=== PATIENT | male | born 1955 | race Caucasian/White ===

== ENCOUNTER 2024-12-09 19:22 | Observation (INO) | payer MEDICARE ==
[~2024-12-09] VITALS: Ht 182.9 cm; Wt 121.6 kg
[2024-12-09 19:56] LABS: BASOPHILS ABSOLUTE AUTO 0.02 K/mm3 (0.00-0.23); BASOPHILS PERCENT AUTO 0 % (0-2); EOSINOPHILS ABSOLUTE AUTO 0.02 K/mm3 (0.00-0.68); EOSINOPHILS PERCENT AUTO 0 % (0-6); Hematocrit 44.2 % (37.0-53.0); Hemoglobin 15.2 g/dL (13.5-17.5); IMMATURE GRAN ABSOLUTE AUTO 0.04 K/mm3 (0.00-0.10); IMMATURE GRAN PERCENT AUTO 0 % (0-1); LYMPHOCYTES ABSOLUTE AUTO 2.06 K/mm3 (0.84-5.20); LYMPHOCYTES PERCENT AUTO 14 % (21-46); MONOCYTES ABSOLUTE AUTO 1.66 K/mm3 (0.16-1.47); MONOCYTES PERCENT AUTO 11 % (4-13); Mean Corpuscular HGB Conc 34.4 g/dL (31.5-36.5); Mean Corpuscular Volume 85 fL (80-100); NEUTROPHILS ABSOLUTE AUTO 10.84 K/mm3 (1.96-9.15); NEUTROPHILS PERCENT AUTO 74 % (41-73); NRBC ABSOLUTE 0.00 K/mm3 (0.00-0.02); NRBC Auto 0.0 /100 WBC (0.0-0.2); Platelet Count 212 K/mm3 (150-400); RDW Coefficient Variation 12.9 % (11.7-14.2); RDW Standard Deviation 39.9 fL (35.1-46.3)
[2024-12-09 20:14] LABS: Alanine Aminotransfer (ALT/SGP 61.0 U/L (12-78); Albumin, Blood 3.9 g/dL (3.4-5.0); Albumin/Globulin Ratio 1.1 (0.8-1.8); Anion Gap 8.0 mmol/L (3-11); Aspartate Aminotrans (AST/SGOT 29.0 U/L (12-37); Bilirubin, Total 0.6 mg/dL (0.1-1.0); Blood Urea Nitrogen 13.0 mg/dL (8-24); CO2, Blood 27.0 mmol/L (21-32); Calcium, Blood 9.0 mg/dL (8.5-10.1); Chloride, Blood 101.0 mmol/L (98-108); Creatinine, Blood 0.71 mg/dL (0.60-1.20); Globulin, Blood 3.7 g/dL (2.2-4.0); Glucose, Blood 137.0 mg/dL (70-99); Potassium, Blood 3.3 mmol/L (3.5-5.5); Sodium, Blood 133.0 mmol/L (136-145); Total Protein, Blood 7.6 g/dL (6.4-8.2)
[2024-12-09] MEDS ORDERED: Ampicillin Sod/Sulbactam Sod 3 GM in NS 100 ML IV ONE (23:40)
[2024-12-09] MEDS ORDERED: FentaNYL Citrate 50 MCG/ML 2 ML Injection IV PRN (23:45)
[2024-12-09] MEDS ORDERED: NS 1,000 ML IV ONE (23:45)
[2024-12-09] MEDS ORDERED: Ondansetron HCl 2 MG / ML 2ML Vial IV PRN (23:45)
[2024-12-10] VITALS (12 sets, daily range): BP systolic 132–178; BP diastolic 68–98
[2024-12-10] MEDS ORDERED: ASCO500 PO (01:05)
[2024-12-10] MEDS ORDERED: VITAMIN D5000 UNIT PO (01:05)
[2024-12-10] MEDS ORDERED: Vitamin K100 MCG PO (01:06)
[2024-12-10 05:54] LABS: BASOPHILS ABSOLUTE AUTO 0.02 K/mm3 (0.00-0.23); BASOPHILS PERCENT AUTO 0 % (0-2); EOSINOPHILS ABSOLUTE AUTO 0.01 K/mm3 (0.00-0.68); EOSINOPHILS PERCENT AUTO 0 % (0-6); Hematocrit 42.3 % (37.0-53.0); Hemoglobin 14.4 g/dL (13.5-17.5); IMMATURE GRAN ABSOLUTE AUTO 0.06 K/mm3 (0.00-0.10); IMMATURE GRAN PERCENT AUTO 1 % (0-1); LYMPHOCYTES ABSOLUTE AUTO 1.17 K/mm3 (0.84-5.20); LYMPHOCYTES PERCENT AUTO 9 % (21-46); MONOCYTES ABSOLUTE AUTO 1.47 K/mm3 (0.16-1.47); MONOCYTES PERCENT AUTO 11 % (4-13); Mean Corpuscular HGB Conc 34.0 g/dL (31.5-36.5); Mean Corpuscular Volume 86 fL (80-100); NEUTROPHILS ABSOLUTE AUTO 10.46 K/mm3 (1.96-9.15); NEUTROPHILS PERCENT AUTO 79 % (41-73); NRBC ABSOLUTE 0.00 K/mm3 (0.00-0.02); NRBC Auto 0.0 /100 WBC (0.0-0.2); Platelet Count 181 K/mm3 (150-400); RDW Coefficient Variation 13.2 % (11.7-14.2); RDW Standard Deviation 40.8 fL (35.1-46.3)
[2024-12-10] MEDS ORDERED: Piperacillin/Tazobactam Sod 4.5 GM in NS 100 ML IV SCH (06:00)
[2024-12-10 06:21] LABS: Magnesium, Blood 2.2 mg/dL (1.6-2.4); Phosphorus, Blood 2.2 mg/dL (2.5-4.9)
[2024-12-10 06:23] LABS: Alanine Aminotransfer (ALT/SGP 51.0 U/L (12-78); Albumin, Blood 3.4 g/dL (3.4-5.0); Albumin/Globulin Ratio 0.9 (0.8-1.8); Anion Gap 8.0 mmol/L (3-11); Aspartate Aminotrans (AST/SGOT 26.0 U/L (12-37); Bilirubin, Total 0.8 mg/dL (0.1-1.0); Blood Urea Nitrogen 12.0 mg/dL (8-24); CO2, Blood 26.0 mmol/L (21-32); Calcium, Blood 8.4 mg/dL (8.5-10.1); Chloride, Blood 103.0 mmol/L (98-108); Creatinine, Blood 0.63 mg/dL (0.60-1.20); Globulin, Blood 3.7 g/dL (2.2-4.0); Glucose, Blood 157.0 mg/dL (70-99); Potassium, Blood 3.6 mmol/L (3.5-5.5); Sodium, Blood 133.0 mmol/L (136-145); Total Protein, Blood 7.1 g/dL (6.4-8.2)
--- NOTE | 2024-12-10 06:32 | NUR ---
Shift Summary: Pt A/Ox4, pleasant, and independent. Pt received to floor from ED at 0100 with c/o of lower abd pain and consitpation x 2 days. Pt oriented to room with call light in reach. CT completed within ED, which found acute cholecystitis and a large cholelithiasis. Pt is scheduled for surgery tomorrow with Dr. Croft, 4th on the surgery list. Pt remained NPO since midnight. Pt reported abd pain at 2 on the 0-10 pain pain scale. Pt denied need for pain medication. VSS, however hypertension noted.
--- NOTE | 2024-12-10 17:55 | NUR ---
PT HAS BEEN AOX4 AND COOPERATIVE OF CARE. PT TREATED FOR ABD PAIN PER EMAR. PT WAS GIVEN A CLEAR DIET FOR LUNCH PER DR ARCOS AND HAS SINCE BEEN NPO WAITING FOR PROCEDURE. CALL LIGHT WITH REACH INDEPENDENT IN ROOM WILL CONTINUE TO MONITOR.
[2024-12-10] MEDS ORDERED: Bupivacaine 0.5% HCl 5 MG/ML 30MLVIAL ONE (18:17)
--- NOTE | 2024-12-10 19:57 | NUR ---
PT BROUGHT TO PACU VIA GURNEY FROM RM 333 FOR PREOP CARE AT 1950. ALERT & PLEASANT. AFEBRILE/VSS. LR AT TKO. SURGICAL PACK COMPLETE. SURGICAL HAT/PAS SLEEVES/BP CUFF PLACED. RESTING QUIETLY. NO COMPLAINTS. WILL CONTIINUE TO MONITOR VS WHILE IN MY CARE.
[2024-12-10] MEDS ORDERED: Ondansetron HCl 2 MG / ML 2ML Vial ONE (19:59)
[2024-12-10] MEDS ORDERED: Metoclopramide HCl 5MG / ML 2ML Vial ONE (19:59)
[2024-12-10] MEDS ORDERED: FentaNYL Citrate 50 MCG/ML 2 ML Injection ONE (19:59)
[2024-12-10] MEDS ORDERED: Rocuronium Bromide 10 MG/ML 5ML Injection IV ONE (19:59)
--- NOTE | 2024-12-10 20:25 | NUR ---
PT TO OR 1 VIA QUITA AT 2024 IN STABLE CONDITION.
[2024-12-10] MEDS ORDERED: HYDROmorphone HCl/Pf 1MG SYR IV PRN ×2 (20:30→22:35)
[2024-12-10] MEDS ORDERED: Metoclopramide HCl 5MG / ML 2ML Vial IV PRN (20:30)
[2024-12-10] MEDS ORDERED: Ondansetron HCl 2 MG / ML 2ML Vial IV PRN (20:35)
[2024-12-10] MEDS ORDERED: Morphine Sulfate 4 MG/1 ML Injection IV PRN (20:35)
[2024-12-10] MEDS ORDERED: FentaNYL Citrate 50 MCG/ML 2 ML Injection IV PRN ×2 (20:35)
--- NOTE | 2024-12-10 21:01 | NUR ---
12/10/242100 Laureen Sifuentes PATIENT IS ON SCHEDULED ANTIBIOTICS, NO ADDITIONAL PREOPERATIVE ANTIBIOTICS ORDERED.
[2024-12-10] MEDS ORDERED: Sugammadex Sodium 200 MG/2ML SDV (100 MG/ML) ONE (22:16)
[2024-12-10] MEDS ORDERED: Ketorolac Tromethamine 15mg Vial IV PRN (22:45)
--- NOTE | 2024-12-10 23:20 | NUR ---
ARRIVAL NOTE PT ARRIVED FROM PACU/ICU AT APPROX 2315 S/P LAP JORJE. PT IS A/OX4 WITH VSS. DENIES PAIN. ABLE TO TRANSFER SELF AND MAKE NEEDS KNOWN. SCDS PLACED. DENIES CHEST PAIN AND PRESSURE. DAUGHTER ATTENTIVE AT BEDSIDE. ORIENTATION COMPLETE. MARTHA SMALL AMOUNT OF PO. INCISIONS X 4 CDI, CLOSED WITH TISSUE ADHESIVE, NO DRAINAGE NOTED. AWAITING FIRST POST OP VOID. HAS CALL LIGHT IN REACH
[2024-12-11 00:23] VITALS: BP 120/66
[2024-12-11 00:53] VITALS: BP 151/85
--- NOTE | 2024-12-11 02:19 | NUR ---
TRANSFEROF CARE PT ARRIVED FROM PACU TPDAY AT APPROX 2315. PT IS A/OX4 AND ABLE TO TRASNFER PHOENIX DEVLIN. IV IS SL. ABD INCISIONS CDI. PT IS TLERATIVNG SMALL AMOUNTS OF PO INTAKE. PT ABLE TO TRANSFER SELF. DENIES CHEST PAIN/PRESSURE. IV PATENT AND SL. PT ALSO DENIES CURRENT NEEDS. WILL GIVE REPORT TO JESS FLOWER.
[2024-12-11 02:21] VITALS: BP 104/62
[2024-12-11 03:47] VITALS: BP 125/73
[2024-12-11 04:49] LABS: BASOPHILS ABSOLUTE AUTO 0.01 K/mm3 (0.00-0.23); BASOPHILS PERCENT AUTO 0 % (0-2); EOSINOPHILS ABSOLUTE AUTO 0.00 K/mm3 (0.00-0.68); EOSINOPHILS PERCENT AUTO 0 % (0-6); Hematocrit 41.7 % (37.0-53.0); Hemoglobin 13.7 g/dL (13.5-17.5); IMMATURE GRAN ABSOLUTE AUTO 0.07 K/mm3 (0.00-0.10); IMMATURE GRAN PERCENT AUTO 1 % (0-1); LYMPHOCYTES ABSOLUTE AUTO 1.02 K/mm3 (0.84-5.20); LYMPHOCYTES PERCENT AUTO 8 % (21-46); MONOCYTES ABSOLUTE AUTO 1.30 K/mm3 (0.16-1.47); MONOCYTES PERCENT AUTO 10 % (4-13); Mean Corpuscular HGB Conc 32.9 g/dL (31.5-36.5); Mean Corpuscular Volume 88 fL (80-100); NEUTROPHILS ABSOLUTE AUTO 10.62 K/mm3 (1.96-9.15); NEUTROPHILS PERCENT AUTO 82 % (41-73); NRBC ABSOLUTE 0.00 K/mm3 (0.00-0.02); NRBC Auto 0.0 /100 WBC (0.0-0.2); Platelet Count 166 K/mm3 (150-400); RDW Coefficient Variation 13.2 % (11.7-14.2); RDW Standard Deviation 42.7 fL (35.1-46.3)
[2024-12-11 05:06] LABS: Alanine Aminotransfer (ALT/SGP 59.0 U/L (12-78); Albumin, Blood 3.0 g/dL (3.4-5.0); Albumin/Globulin Ratio 0.8 (0.8-1.8); Anion Gap 8.0 mmol/L (3-11); Aspartate Aminotrans (AST/SGOT 44.0 U/L (12-37); Bilirubin, Total 0.7 mg/dL (0.1-1.0); Blood Urea Nitrogen 10.0 mg/dL (8-24); CO2, Blood 25.0 mmol/L (21-32); Calcium, Blood 8.1 mg/dL (8.5-10.1); Chloride, Blood 107.0 mmol/L (98-108); Creatinine, Blood 0.7 mg/dL (0.60-1.20); Globulin, Blood 3.8 g/dL (2.2-4.0); Glucose, Blood 133.0 mg/dL (70-99); Potassium, Blood 4.0 mmol/L (3.5-5.5); Sodium, Blood 136.0 mmol/L (136-145); Total Protein, Blood 6.8 g/dL (6.4-8.2)
--- NOTE | 2024-12-11 06:10 | NUR ---
SHIFT SUMMARY NO ACUTE CHANGES SINCE TRANSFER TO UNIT. PT IS POD 1 S/P LAP JORJE. INICISIONS CDI, NO DRAINAGE NOTED. MEDICATED X 1 FOR PAIN PER EMAR. IS VOIDING AND AMBULATING IN ROOM WITH SBA. PT EAGER FOP DISCHARGE. DAUGHTER ATTENTIVE IN ROOM. PT CURRENTLY RESTING IN BED WITH CALL LIGHT IN REACH . WILL GIVE REPORT TO ONCOMING RN.
[2024-12-11 07:32] VITALS: BP 144/83
[2024-12-11] MEDS ORDERED: Sodium Phosphate 15 MM in Dextrose 5% 500 ML IV STA (08:29)
[2024-12-11] MEDS ORDERED: ACET325 PO (11:57)
[2024-12-11] MEDS ORDERED: ONDA4 PO (11:57)
--- NOTE | 2024-12-11 12:42 | NUR ---
DISCHARGE SUMMARY PT IS A/OX4, NO N/V. REPORTS NO PAIN. IV REMOVED. PT VERBALIZES UNDERSTANDING OF D/C INSTRUCTIONS. TOLERATING INTAKE AND VOIDING WELL. ESCORTED OUT VIA Impulsiv @6701. PT LEFT W/ ALL PERSONAL BELONGINGS.
== END 2024-12-11 12:31 | disposition home or self-care (01) ==
LOC: ER 19:22 → MEDS 19:25 → SURS 19:25 → MEDS 19:25 → SURS 12-10 21:45
PROVIDERS: Student in an Organized Health Care Education/Training Program; Surgery; ADMIT Internal Medicine
PROC: 8E0W4CZ Robotic Assisted Procedure of Trunk Region, Percutaneous Endoscopic Approach (ICD-10-PCS; principal; 2024-12-10 14:30)
PROC: 0FT44ZZ Resection of Gallbladder, Percutaneous Endoscopic Approach (ICD-10-PCS; principal; 2024-12-10 14:30)
DX: K80.00 Calculus of gallbladder with acute cholecystitis without obstruction (principal); K66.0 Peritoneal adhesions (postprocedural) (postinfection); Z87.891 Personal history of nicotine dependence
CPT/HCPCS: 36415; 74018; 74177; 80053; 83690; 83735; 83880; 84100; 85025; 88304; 94760; 96365; 96366; 96367; 96375; 96376; 99285-25; A9270; G0378; J0295; J2405; J2543; J2704; J2765; J3010; J3480; J7030; J7050; J7060; J7120; Q9967